=== PATIENT | female | born 1940 | race Caucasian/White ===

== ENCOUNTER 2018-03-12 07:31 | Day surgery (SDC) | payer OTHER, MEDICARE ==
[2018-03-12] MEDS ORDERED: DIAZEPAM 5 MG TAB PO ONE (07:33)
[2018-03-12] MEDS ORDERED: ASPIRIN EC 325 MG TAB PO ONE ×2 (07:33→07:38)
[2018-03-12] MEDS ORDERED: NS 1,000 ML IV ONE (07:33)
[2018-03-12] MEDS ORDERED: FAMOTIDINE 20 MG TAB PO ONE (07:33)
[2018-03-12] MEDS ORDERED: diphenhydrAMINE 25 MG CAP PO ONE ×2 (07:33→07:38)
[2018-03-12] MEDS ORDERED: DIAZEPAM 5 MG TAB ONE (07:38)
[2018-03-12] MEDS ORDERED: FAMOTIDINE 20 MG TAB ONE (07:38)
[2018-03-12 08:15] LABS: PLATELET COUNT 239 10^3/uL (150-400)
--- NOTE | 2018-03-12 08:17 | CPEKG ---
Test Reason : OPEN Blood Pressure : / mmHG Vent. Rate : 051 BPM Atrial Rate : 050 BPM P-R Int : 179 ms QRS Dur : 085 ms QT Int : 442 ms P-R-T Axes : 067 022 028 degrees QTc Int : 408 ms Sinus rhythm Low voltage, precordial leads Confirmed by Enrique Walker ([id number]) on 03/12/2018 8:17:20 AM Referred By: Confirmed By:Enrique Walker
--- NOTE | 2018-03-12 08:18 | PDPROPOC ---
Sedation Plan of Care Sedation Plan of Care: vital signs stable, mental status noted, patient educated of risks, benefits, alternatives, patient can tolerate sedation ASA Classification: ASA 3 Planned drugs: fentanyl, midazolam Mallampati Score: Class 1 Mallampati Reference Image: Patient passed 3-3-2 rule?: Yes
--- NOTE | 2018-03-12 08:20 | PDHPUP ---
History & Physical Update H&P update statement: This history and physical update is based on an assessment of the patient which was completed after admission or registration (within 24 hours), but prior to the surgery/procedure. Patient with continued symptoms of chest pains - noted with activity. Acceleration of symptoms has been noted over the past several weeks. Angiography was discussed with the patient in the office last week, and we agreed to pursue LHC given the symptoms noted (rather than non invasive stress testing). H&P update: H&P reviewed & patient examined, no change in patient's condition since H&P completed
[2018-03-12 08:24] LABS: INR 1.06 (0.83-1.16)
[2018-03-12] MEDS ORDERED: fentaNYL 100 MCG/2 ML INJ ONE (08:36)
[2018-03-12] MEDS ORDERED: MIDAZOLAM 2 MG/2 ML VIAL ONE (08:36)
[2018-03-12] MEDS ORDERED: LIDOCAINE 1% 300 MG/30 ML SDV ONE (08:36)
[2018-03-12] MEDS ORDERED: IOPAMIDOL (ISOVUE-370) 150 ML BTL IV ONE (08:36)
--- NOTE | 2018-03-12 09:53 | PDDXCAT ---
Diagnostic Cath Note - . Date: 03/12/18 [employer]: Aaron Indication: CCC Class III and IV angina on medical treatment - Procedure Access: right groin Procedure: left heart catheterization, coronary angiography, left ventriculogram - Materials Left Heart Cath size: 6F Left Heart Cath materials: standard multipack (JL4, JR4, pigtail) - Findings-Left Heart Catheterization LM: Long vessel with bifurcation into the LAD and LCX. No luminal irregularities were noted. Small to medium diameter vessel. LAD: Smallish vessel with a 20% proximal lesion (smooth). There is one principal diagonal noted. No further critical luminal irregularities were noted. The mid to distal LAD is small and tortuous. LCX: Small to medium diameter vessel. The vast majority of the diameter is transmitted into the OM1. There are no critical luminal irregularities noted, but there is moderate tortuosity noted. RCA: Anterior, superior take off with non selective injections performed. There were no critical proximal or mid lesions identified. Distally, the vessel is quite small. There may be a lesion to the PDA, but given the diameter of the vessel, it would not be ammenable to PCI. The flow in the region was QUIRINO III. Tortuosity continues to be significant to the distal vessel. 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 There were no critical lesions to the proximal or mid portion of LAD, LCX, or RCA. Normal LVEF was noted. Normal wall motion. Plan: Addition of Imdur (30 mg twice per day) with follow up in outpatient cardiology setting in one week. Intervention: none
[2018-03-12] MEDS ORDERED: ATROPINE SULFATE 1 MG/10 ML SYR IVP PRN (10:01)
[2018-03-12] MEDS ORDERED: NITROGLYCERIN 0.4 MG BTL SL PRN (10:01)
[2018-03-12] MEDS ORDERED: ONDANSETRON 4 MG/2 ML VIAL IVP PRN (10:01)
[2018-03-12] MEDS ORDERED: ISOSORBIDE MONONITRATE 30 MG TAB.SR PO SCH (15:00)
== END 2018-03-12 13:09 | disposition home or self-care (01) ==
LOC: FCATH 07:31
PROVIDERS: ATTEND Internal Medicine Cardiovascular Disease
DX: I25.119 Atherosclerotic heart disease of native coronary artery with unspecified angina pectoris (principal); G47.33 Obstructive sleep apnea (adult) (pediatric); I10 Essential (primary) hypertension; E78.5 Hyperlipidemia, unspecified; E11.9 Type 2 diabetes mellitus without complications
CPT/HCPCS: C1760; J1644; J2250; J3010; Q9967